=== PATIENT | male | born 2000 | race Caucasian/White ===

== ENCOUNTER 2024-02-26 13:30 | Emergency (ER) | payer BC, SELFPAY ==
--- NOTE | ~2024-02-26 | CT_ITS ---
EXAMINATION: CT ABDOMEN AND PELVIS WITH CONTRAST CLINICAL INFORMATION: Right lower quadrant abdominal pain COMPARISON: None available. TECHNIQUE: Multidetector volumetric images were obtained from the superior aspect of the liver through the pubic symphysis following administration 85 mL of Omnipaque 350 intravenous contrast. Sagittal and coronal reformatted images were obtained on the technologist's workstation. Oral contrast: No This CT examination was performed using dose optimization techniques as appropriate, variously including the following: *Automated exposure control *Adjustment of mA and/or kV according to patient size (this includes techniques or standardized protocols for targeted exams where dose is matched to indication/reason for exam; i.e. extremities or head) *Use of iterative reconstruction technique DLP: 420 mGy-cm FINDINGS: LUNG BASES: The visualized lung bases are unremarkable. LIVER, GALLBLADDER, AND BILIARY TREE: The liver is normal in size, shape, and attenuation. No focal hepatic lesion or biliary ductal dilatation is present. The gallbladder is unremarkable with no evidence of radiopaque gallstones, gallbladder wall thickening, or obvious pericholecystic inflammatory changes. PANCREAS: Unremarkable. SPLEEN: Unremarkable. ADRENAL GLANDS: Unremarkable. KIDNEYS AND URETERS: The kidneys are normal in size, shape, and attenuation. No hydronephrosis, hydroureter, or calculi seen. No perinephric stranding. BLADDER: Unremarkable. GASTROINTESTINAL TRACT: The small and large bowel are unremarkable. The appendix is unremarkable. ABDOMINAL WALL: No significant hernia is appreciated. LYMPH NODES: Normal. VASCULAR: Unremarkable. PELVIC VISCERA: Unremarkable. OSSEOUS STRUCTURES: Unremarkable. CT/CT abdomen pelvis w IV con IMPRESSION: No significant abnormality. The appendix is normal Electronically signed by: David Coulter MD 02/26/2024 08:53 PM EST
[2024-02-26 14:06] VITALS: BP 128/67; PULSE 65; RESP 18; TEMP 36.7; O2SAT 98; BMI 26.6
--- NOTE | 2024-02-26 14:10 | ED_ITS ---
HPI - Abdominal Pain General Chief Complaint: Abdominal Pain Stated Complaint: Abd pain, nausea Time Seen by Provider: 02/26/24 16:28 Source: patient Mode of arrival: ambulatory Limitations: no limitations History of Present Illness ED Provider: BERYL HPI narrative: 23 yo male with PMH of migraines - has had a migraine for 3 weeks on and off. He notes migraines for many years takes excedrin. He comes in today with c/o n/v and RLQ pain since last night. He did eat a snickers bar around 3pm today. He has not had diarrhea, testicular pain, dysuria, drainage. It hurts to move and touch the abdomen. MD elicited complaint: abdominal pain Pertinent past history: none Onset (ago): day(s) (1) Pain Consistency: constant Location: RLQ Severity: moderate Quality: aching Radiation: none Migration to: no migration Exacerbating factors: movement Relieving factors: nothing Associated symptoms: nausea, vomiting, chills and other (headache) Treatments prior to arrival: NSAIDs (excedrin at noon) Related Data Previous Rx's ?Medication ?Instructions ?Recorded ondansetron 4 mg disintegrating 4 mg PO Q8H PRN nausea and 02/26/24 tablet vomiting #20 tabs Allergies Allergy/AdvReac Type Severity Reaction Status Date / Time No Known Allergies Allergy Verified 02/26/24 14:08 Review of Systems Review of Systems Constitutional : No Weight loss, No Fever, No Chills ENT/Mouth : No sore throat, No Rhinorrhea Eyes: No Swelling, No Redness Cardiovascular : No Chest Pain, No SOB, No Edema Respiratory : No Cough, No Sputum, No Wheezing Gastrointestinal : Positive Nausea, Positive Vomiting, no Diarrhea, positive abdominal Pain, No Hematochezia, No Melena Genitourinary : No Dysuria, No Urinary Frequency, No Hematuria, No Urgency Musculoskeletal : No joint pain, No Myalgias, No Joint Swelling Skin : No Skin Lesions, No rash Neuro : No Weakness, No Numbness, No Dizziness, pos Headache All other systems reviewed and are negative. [facility] Past Medical History Attestation statement: The following information was validated with the patient. Source: old records reviewed Medical History Migraines Social History Social History (Updated 02/26/24 @ 16:43 by Flavia Ferreira DO) Patient Tobacco Use Status: Never used Tobacco Advance Directives: No Physical Exam ED Vital Signs: Vital Signs - 24 hr 02/26/24 14:06 02/26/24 16:33 02/26/24 18:00 Temperature 98.0 F 97.7 F 99.6 F Pulse Rate 65 59 54 Respiratory Rate 18 18 16 Blood Pressure 128/67 120/78 108/50 L Pulse Oximetry 98 99 100 Oxygen Delivery Method Room Air Room Air Room Air 02/26/24 19:31 02/26/24 22:08 Temperature 98.8 F 98.5 F Pulse Rate 69 51 Respiratory Rate 20 12 Blood Pressure 123/55 L 119/60 Pulse Oximetry 99 98 Oxygen Delivery Method Room Air Room Air BMI result Body Mass Index 26.6 Appearance: Alert. Oriented X3. No acute distress. Eyes: Pupils equal, round and reactive to light. ENT: Pharynx dry MM Neck: Normal inspection. Neck supple. CVS: Normal heart rate and rhythm. Pulses normal. Respiratory: No respiratory distress. Breath sounds normal. Abdomen: Soft and moderate RLQ ttp no rebound : normal no ttp Skin: Skin warm and dry. Normal skin color. Extremities: No lower extremity edema. Neuro: Oriented X 3. No motor deficit. No sensory deficit. Course Course Course Narrative: This is a rapid medical exam performed by Roxy Whitman PA-C. The patient is a 23-year-old male who presents with right lower quadrant pain since overnight. Pain focal to the right lower quadrant, with the associated nausea vomiting the prior day. Denies testicular swelling or pain. Pain worse with movement, bearing down. However no dysuria or hematuria. On exam, the patient's abdomen is soft, nondistended, moderate tenderness with light palpation. Concerned for an early appy, we will be screening basic labs and a urinalysis. The patient is hemodynamically stable, we will return to the waiting room pending his full medical assessment. Reevaluation(s) Reevaluation #1: 03/29 SIRS IV zosyn ordered at this time pending CT scan does not need lactic or cultures Reevaluation #2: signed out to Dr. Rick pending repeat assessment Medical Decision Making Medical Decision Making MDM Narrative: 23 yo male with PMH of migraines here with c/o RLQ pain and n/v worsening since last night. Denies symptoms. At this time basic labs, IV morphine for pain, CT scan for appendicitis did eat a snickers around 3pm he has been told to be NPO 02/26/2024 at 22:24 hours, Dr. Walker Rick's note: I assumed care of this patient from my colleague, Dr. Ferreira at 21:00 hours. I did examine the patient. The patient has very mild lower abdominal tenderness with no localizing tenderness, patient has a an circumcised male penis with no tenderness palpation of the testicles are in the groin area. Patient's laboratory evaluation CT scan did not reveal a clear cause for his pain. He states that his pain is improved in his now down to 4 to 5/10. Patient was prescribed Zofran 4 mg ODT every 6 hours as needed for nausea and vomiting. He was advised to take Tylenol and ibuprofen for his pain. I did emphasize the possibility of early appendicitis with a him in his mother and that they should return to the emergency department if his pain got worse in any way or did not completely resolve 24 hours. Differential Diagnosis Differential Diagnoses: The differential diagnosis associated with the presentation includes appendicitis, mesenteric adenitis, viral syndrome Admission/Observation Consideration of admission/observation: Escalation of care including admission/observation considered Lab Data MDM Lab Attestation statement: I reviewed the patient's lab results. 02/26/24 15:19 02/26/24 15:19 Labs: Lab Results 02/26/24 02/26/24 Range/Units 15:19 16:38 WBC 12.2 H (4.8-10.8) X10*3/uL RBC 6.10 H (4.60-5.80) X10*6/uL Hgb 15.5 (14.0-18.0) g/dl Hct 47.6 (42.0-52.0) % MCV 78.0 L (80.0-98.0) fL MCH 25.4 L (27.0-33.0) pg MCHC 32.6 (31.0-36.0) g/dl RDW 13.1 (11.0-16.0) % Plt Count 248 (160-400) X10*3/uL MPV 10.4 (9.4-12.4) fL Immature Gran % (Auto) 0.6 H (0.0-0.4) % Neut % (Auto) 83.2 H (45-73) % Lymph % (Auto) 8.9 L (20-40) % [place] % (Auto) 6.2 (2-11) % Eos % (Auto) 0.8 (0-4) % Baso % (Auto) 0.3 (0-2) % Lymph # (Auto) 1.1 L (1.2-4.9) X10*3/uL [place] # (Auto) 0.8 (0.1-1.2) X10*3/uL Eos # (Auto) 0.1 (0.0-0.4) X10*3/uL Baso # (Auto) 0.0 (0.0-0.2) X10*3/uL Abs Immat Gran (auto) 0.07 H (0.00-0.03) X10*3/uL Absolute Neuts (auto) 10.1 H (2.0-8.3) x10*3/uL Absolute Nucleated RBC 0.000 (0.0-0.012) X10*3/uL Nucleated RBC % (auto) 0.0 (0.0-0.2) /100WBC Sodium 138 (135-145) mmol/L Potassium 3.6 (3.3-5.1) mmol/L Chloride 102 (96-108) mmol/L Carbon Dioxide 27 (22-29) mmol/L Anion Gap 13 (12-20) BUN 12 (9-16) mg/dL Creatinine 0.99 (0.5-1.4) mg/dL Estim Creat Clear Calc 112.2 Estimated GFR > 60 Random Glucose 155 H (60-115) mg/dL Calcium 9.8 (8.4-10.2) mg/dL Magnesium 2.2 (1.6-2.6) mg/dL Total Bilirubin 0.6 (0.0-1.0) mg/dL AST 38 H (5-37) U/L ALT 49 H (0-40) U/L Alkaline Phosphatase 49 (39-117) U/L Total Protein 8.1 H (6.5-8.0) g/dL Albumin 4.9 (3.5-5.0) g/dL Urine Color Yellow Urine Appearance Clear Urine pH 7.0 (5.0-9.0) Ur Specific [place] 1.015 (1.005-1.025) Urine Protein Negative (Neg-Trace) mg/dL Urine Glucose (UA) Negative (Negative) mg/dL Urine Ketones Trace (Negative) mg/dL Urine Blood Negative (Negative) Urine Nitrite Negative (Negative) Ur Leukocyte Esterase Negative (Negative) Independent Interpretation I performed an independent interpretation of an: CT Scan Radiology Impression Discussion of test interpretation with radiology: I have reviewed the radiologist's reading. Medications Administered Discontinued Medications Generic Name Dose Route Start Last Admin Trade Name Freq PRN Reason Stop Dose Admin Lactated Ringer's 1,000 mls @ 999 mls/hr 02/26/24 16:34 02/26/24 18:44 Lr IV 02/26/24 17:34 Infused .Q1H1M ONE Infusion Piperacillin Sod/Tazobactam 50 mls @ 100 mls/hr 02/26/24 20:09 02/26/24 21:02 Sod 3.375 gm/ Sodium Chloride IV 02/26/24 20:38 Infused ONCE ONE Infusion Acetaminophen 1,000 mg in 100 mls @ 400 mls/hr 02/26/24 20:35 02/26/24 21:30 Ofirmev IV 02/26/24 20:49 Infused ONCE ONE Infusion Sodium Chloride 1,000 mls @ 999 mls/hr 02/26/24 21:04 02/26/24 21:41 Ns IV 02/26/24 22:04 999 mls/hr .Q1H1M ONE Administration Iohexol 100 ml 02/26/24 17:20 02/26/24 17:20 Iohexol 350 Mg/Ml 100 Ml Infus..Btl IV 02/26/24 17:21 85 ml ONCE ONE Administration Ketorolac Tromethamine 15 mg 02/26/24 16:34 02/26/24 16:57 Ketorolac Tromethamine 15 Mg/Ml Vial IVPUSH 02/26/24 16:35 15 mg ONCE ONE Administration Morphine Sulfate 4 mg 02/26/24 16:45 02/26/24 16:57 Morphine Sulfate 4 Mg/Ml Cartridge IVPUSH 02/26/24 16:46 4 mg ONCE ONE Administration Protocol Ondansetron HCl 4 mg 02/26/24 16:34 02/26/24 16:57 Ondansetron Hcl 4 Mg/2 Ml Vial IVPUSH 02/26/24 16:35 4 mg ONCE ONE Administration Discharge Plan Discharge Clinical Impression: Abdominal pain Qualifiers: Abdominal location: right lower quadrant Qualified Code(s): R10.31 - Right lower quadrant pain Patient Disposition: Home, Self-Care Instructions: Abdominal Pain (ED) Additional Instructions: The CT scan of your abdomen pelvis did not reveal a clear cause for your pain which is reassuring. Your blood work and urine tests were normal At this time, I suspect that she might have a virus as the cause of your pain however appendicitis still needs to be considered as a possible cause of your pain. Take Zofran ODT 4 mg pills, 1 pill dissolved in your mouth every 8 hours as needed for nausea and vomiting. Take ibuprofen 200 mg pills, 2 pills every 6 hours as needed for pain or fever. Take Tylenol (acetaminophen) 500 mg pills, 2 pills every 6 hours as needed for pain or fever. For the next 24 hours, stay on a ALAINA diet (bananas, rice, applesauce, tea and toast). Follow-up with your doctor in 2 days. Please return to the emergency department if your symptoms get worse or if you develop any symptoms that are concerning to you. Prescriptions: New ondansetron 4 mg tablet,disintegrating 4 mg PO Q8H PRN (Reason: nausea and vomiting) Qty: 20 0RF Stand Alone Forms: Work/School Release Print Language: Danish
[2024-02-26 15:31] LABS: MANUAL DIFF FLAG NO
[2024-02-26 15:39] LABS: Basophils Percent Auto 0.3 % (0-2); Eosinophils Absolute Auto 0.1 X10*3/uL (0.0-0.4); Eosinophils Percent Auto 0.8 % (0-4); Hematocrit 47.6 % (42.0-52.0); Hemoglobin 15.5 g/dl (14.0-18.0); Imm Gran Abs Auto 0.07 X10*3/uL (0.00-0.03); Imm Gran Pct Auto 0.6 % (0.0-0.4); Lymphocytes Absolute Auto 1.1 X10*3/uL (1.2-4.9); Lymphocytes Percent Auto 8.9 % (20-40); Mean Corpuscular HGB Conc 32.6 g/dl (31.0-36.0); Mean Corpuscular Hemoglobin 25.4 pg (27.0-33.0); Mean Platelet Volume 10.4 fL (9.4-12.4); Monocytes Absolute Auto 0.8 X10*3/uL (0.1-1.2); Monocytes Percent Auto 6.2 % (2-11); Neutrophils Absolute Auto 10.1 x10*3/uL (2.0-8.3); Neutrophils Percent Auto 83.2 % (45-73); Platelet Count 248 X10*3/uL (160-400); Red Cell Distribution Width 13.1 % (11.0-16.0); White Blood Count 12.2 X10*3/uL (4.8-10.8)
[2024-02-26 16:07] LABS: Albumin Level 4.9 g/dL (3.5-5.0); Alkaline Phosphatase 49 U/L (39-117); Anion Gap 13 (12-20); Aspartate Amino Transferase 38 U/L (5-37); Bilirubin Total 0.6 mg/dL (0.0-1.0); Blood Urea Nitrogen 12 mg/dL (9-16); Calcium 9.8 mg/dL (8.4-10.2); Carbon Dioxide 27 mmol/L (22-29); Chloride 102 mmol/L (96-108); Creatinine Clr Calc Pharmacy 112.2; Estimated Glomerular Filt Rate > 60; Glucose Random 155 mg/dL (60-115); Magnesium 2.2 mg/dL (1.6-2.6); Potassium 3.6 mmol/L (3.3-5.1); Sodium 138 mmol/L (135-145); Total Protein 8.1 g/dL (6.5-8.0)
[2024-02-26 16:33] VITALS: BP 120/78; PULSE 59; RESP 18; TEMP 36.5; O2SAT 99
[2024-02-26 16:44] LABS: Appearance Urine Clear; Color Urine Yellow; Glucose Urine UA Negative (Negative); Leukocyte Esterase Urine Negative (Negative); Nitrite Urine Negative (Negative); Specific Gravity - Urine 1.015 (1.005-1.025); Urine Blood Negative (Negative); Urine Ketones Trace mg/dL (Negative); Urine Protein Negative (Neg-Trace)
[2024-02-26] MEDS: Ketorolac Tromethamine 15 MG/ML VIAL IVPUSH (16:57)
[2024-02-26] MEDS: Morphine Sulfate 4 MG/ML CARTRIDGE IVPUSH (16:57)
[2024-02-26] MEDS: ondansetron HCL 4 MG/2 ML VIAL IVPUSH (16:57)
[2024-02-26] MEDS: Lactated Ringers 1,000 ML 999 ML IV (16:57)
[2024-02-26] MEDS: iohexoL 350 MG/ML 100 ML INFUS..BTL IV (17:20)
[2024-02-26 18:00] VITALS: BP 108/50; PULSE 54; RESP 16; TEMP 37.6; O2SAT 100
[2024-02-26 18:38] LABS: Alanine Aminotransferase 49 U/L (0-40)
[2024-02-26 19:31] VITALS: BP 123/55; PULSE 69; RESP 20; TEMP 37.1; O2SAT 99
--- NOTE | 2024-02-26 20:27 | PC.NURSE ---
per MD no blood cultures prior to abx admin. pt reported 5/10 pain however stated does not need morphine at this time, offered iv tylenol per MD.
[2024-02-26] MEDS: Piperacillin Sodium/Tazobactam 3.375 GM in 0.9 % Sodium Chloride 50 ML IV (20:37)
[2024-02-26] MEDS: Acetaminophen 1,000 MG/100 ML PIGGYBACK 400 MG IV (21:01)
[2024-02-26] MEDS: 0.9 % Sodium Chloride 1,000 ML 999 ML IV (21:41)
[2024-02-26 22:08] VITALS: BP 119/60; PULSE 51; RESP 12; TEMP 36.9; O2SAT 98
[2024-02-26 22:43] VITALS: BP 119/60; PULSE 51; RESP 12; TEMP 36.9; O2SAT 98
== END 2024-02-26 22:44 | disposition home or self-care (01) ==
PROVIDERS: Physician Assistant Medical; Emergency Provider Emergency Medicine Emergency Medical Services
DX: R10.2 Pelvic and perineal pain (principal); R10.31 Right lower quadrant pain; G43.909 Migraine, unspecified, not intractable, without status migrainosus; R11.2 Nausea with vomiting, unspecified; Z79.899 Other long term (current) drug therapy
CPT/HCPCS: 36415; 74177; 80053; 81003; 83735; 85025; 96365; 96375; 99284; 99285; J0131; J1885; J2270; J2405; J2543; J7120; Q9967